=== PATIENT | male | born 2005 | race Caucasian/White ===

== ENCOUNTER 2024-04-28 19:43 | Emergency (ER) | payer OTHER ==
[~2024-04-28] VITALS: Ht 182.8 cm; Wt 72.6 kg
[2024-04-28] MEDS ORDERED: Ketorolac Tromethamine 60 MG/2 ML VIAL IM ONE (20:20)
[2024-04-28] MEDS ORDERED: NAPROXEN250 MG PO (21:21)
== END 2024-04-28 21:30 | disposition home or self-care (01) ==
LOC: ED 19:43
DX: S83.92XA Sprain of unspecified site of left knee, initial encounter (principal); Z88.0 Allergy status to penicillin; X50.1XXA Overexertion from prolonged static or awkward postures, initial encounter; Y93.89 Activity, other specified; Y92.89 Other specified places as the place of occurrence of the external cause; Y99.0 Civilian activity done for income or pay

== ENCOUNTER 2024-05-15 12:33 | Emergency (ER) | payer OTHER ==
[~2024-05-15] VITALS: Ht 182.8 cm; Wt 72.6 kg
[~2024-05-15 12:33] MED LIST: NAPROXEN250 MG PO
[2024-05-15] MEDS ORDERED: IBUPROFEN 800 MG TAB PO ONE (13:10)
== END 2024-05-15 13:46 | disposition home or self-care (01) ==
LOC: ED 12:33
DX: S93.401A Sprain of unspecified ligament of right ankle, initial encounter (principal); S80.212A Abrasion, left knee, initial encounter; S80.211A Abrasion, right knee, initial encounter; Z88.0 Allergy status to penicillin; V29.99XA Rider (driver) (passenger) of other motorcycle injured in unspecified traffic accident, initial encounter; Y93.89 Activity, other specified; Y92.89 Other specified places as the place of occurrence of the external cause; Y99.8 Other external cause status